=== PATIENT | male | born 1990 | race Caucasian/White ===

== ENCOUNTER 2021-02-22 15:01 | Emergency (ER) | payer OTHER ==
[2021-02-22 16:22] LABS: BASOPHILS % (AUTO) 0.5 %; EOSINOPHILS # (AUTO) 0.1 10^3/uL (0.0-0.7); EOSINOPHILS % (AUTO) 1.4 %; HCT - HEMATOCRIT 46.2 % (42.0-52.0); HGB - HEMOGLOBIN 15.4 g/dL (14.0-18.0); LYMPHOCYTES # (AUTO) 2.3 10^3/uL (1.5-3.5); LYMPHOCYTES % (AUTO) 29.1 %; MEAN CORPUSCULAR HEMOGLOBIN 28.8 pg (27.0-31.0); MEAN CORPUSCULAR HGB CONC 33.3 g/dL (32.0-36.0); MEAN CORPUSCULAR VOLUME 86.4 fL (80.0-94.0); MEAN PLATELET VOLUME 10.2 fL (7.4-11.4); MONOCYTES # (AUTO) 0.5 10^3/uL (0.0-1.0); MONOCYTES % (AUTO) 6.3 %; NEUTROPHILS # (AUTO) 4.9 10^3/uL (1.5-6.6); NEUTROPHILS % (AUTO) 62.4 %; PLT - PLATELET COUNT 248 10^3/uL (130-450); RED BLOOD COUNT 5.35 10^6/uL (4.70-6.10); RED CELL DISTRIBUTION WIDTH 13.2 % (12.0-15.0); WHITE BLOOD COUNT 7.9 x10^3/uL (4.8-10.8)
[2021-02-22 16:36] LABS: ALBUMIN 4.8 g/dL (3.2-5.5); ALBUMIN/GLOBULIN RATIO 1.5 (1.0-2.2); BILIRUBIN,TOTAL 0.5 mg/dL (0.2-1.0); CALCIUM 9.4 mg/dL (8.5-10.3); POTASSIUM 3.8 mmol/L (3.5-5.0); TOTAL PROTEIN 8.1 g/dL (6.7-8.2)
[2021-02-22 16:46] LABS: BILIRUBIN,URINE NEGATIVE (NEGATIVE); GLUCOSE, URINE (UA) NEGATIVE (NEGATIVE); KETONES,URINE (UA) NEGATIVE (NEGATIVE); LEUKOCYTE ESTERASE, URINE NEGATIVE (NEGATIVE); NITRITE,URINE NEGATIVE (NEGATIVE); OCCULT BLOOD,URINE NEGATIVE (NEGATIVE); PROTEIN,URINE NEGATIVE (NEGATIVE); UROBILINOGEN,URINE 0.2 (NORMAL) E.U./dL (NORMAL)
[2021-02-22 16:51] LABS: CLARITY,URINE CLEAR (CLEAR)
--- NOTE | 2021-02-22 20:23 | CT Report ---
PROCEDURE: Abdomen/Pelvis WO INDICATIONS: LLQ abd pain TECHNIQUE: Noncontrast 5 mm thick sections acquired from the diaphragms to the symphysis. 5 mm coronal and sagi ttal reformats were then performed. For radiation dose reduction, the following was used: automated exposure control, adjustment of mA and/or kV according to patient size. COMPARISON: None. FINDINGS: Image quality: Excellent. ABDOMEN: Lung bases: Lung bases are clear. Heart size is normal. Solid organs: Liver and spleen are normal in size. Gallbladder is within normal limits. Pancreas i s normal in contours. No adrenal nodules. Kidneys are normal in size, without hydronephrosis or nep hrolithiasis. Peritoneum and bowel: There is no evidence of bowel obstruction. No gastric or small bowel wall thick ening. There is focal area of mesenteric fat stranding anterior to distal descending colon and left l ower quadrant and very mild adjacent anterior wall thickening in the adjacent distal descending colon and proximal sigmoid colon most likely represent epiploic appendagitis. No other area of abnormal emery wel wall thickening. No abscess collection is seen. No free fluid of free air. Nodes and vessels: No retroperitoneal or mesenteric adenopathy by size criteria. Aorta and inferior vena cava are normal in caliber. Miscellaneous: No ventral hernias. PELVIS: Genitourinary: Bladder wall thickness is normal. Miscellaneous: No inguinal hernias or adenopathy. Bones: No suspicious bony lesions. No vertebral body compression fractures. IMPRESSION: 1. Focal area of mesenteric fat stranding along anterior aspect of distal descending colon most likel y represent epiglottic appendagitis. Mild anterior wall thickening in distal descending colon and pro ximal sigmoid colon likely represent reactive changes. No other area of abnormal bowel wall thickenin g. No bowel obstruction. No abscess collection. No free fluid or fluid. Reviewed by: Ulices Yang MD on 02/22/2021 8:22 PM PDT Approved by: Ulices Yang MD on 02/22/2021 8:22 PM PDT Station ID: [id number]
--- NOTE | 2021-02-22 20:37 | ED Physician Documentation ---
PD HPI ABD PAIN - Stated complaint Stated Complaint: LOWER LT ABD PX - Chief complaint Chief Complaint: Abd Pain - History obtained from History obtained from: Patient - History of Present Illness Timing - onset: Today Timing - duration: Days (1) Timing - details: Gradual onset Pain level max: 4 Pain level now: 2 Quality: Sharp, Pain Associated symptoms: Constipation. No: Fever, Nausea, Vomiting, Hematemesis, Melena, Hematochezia - Additional information Additional information: 30-year-old male with left lower quadrant abdominal pain since yesterday. Nothing seems to make it better or worse. He states sometimes it hurts more depressed. No diarrhea, but has had constipation. Described as a sharp pain. Nonradiating. No fevers, nausea, vomiting, blood in the stool. Has not had similar symptoms previously. Seen [facility] the [facility] and sent here for a CAT scan. Review of Systems Constitutional: denies: Fever, Chills GI: reports: Constipation. denies: Vomiting, Diarrhea : denies: Dysuria, Frequency, Hesitancy Skin: denies: Rash Musculoskeletal: denies: Neck pain, Back pain PD PAST MEDICAL HISTORY - Past Medical History Past Medical History: No - Past Surgical History Past Surgical History: No - Allergies Allergies/Adverse Reactions: Allergies Allergy/AdvReac Type Severity Reaction Status Date / Time No Known Drug Allergies Allergy Verified 02/22/21 15:11 - Social History Does the pt smoke?: No Smoking Status: Never smoker Does the pt drink ETOH?: No Does the pt have substance abuse?: No - Immunizations Immunizations are current?: No - POLST Patient has POLST: No PD ED PE NORMAL - Vitals Vital signs reviewed: Yes - General General: Alert and oriented X 3, No acute distress - HEENT HEENT: Moist mucous membranes - Neck Neck: Supple, no meningeal sign - Cardiac Cardiac: RRR - Respiratory Respiratory: No respiratory distress, Clear bilaterally - Abdomen Abdomen: Soft, Non distended, Other (Mild tenderness palpation left lower quadrant. No peritoneal signs.) - Derm Derm: Warm and dry - Neuro Neuro: Alert and oriented X 3 Results - Vitals Vitals: Oxygen O2 Source Room air - Labs Labs: Laboratory Tests 02/22/21 02/22/21 02/22/21 16:14 16:18 16:18 WBC 7.9 RBC 5.35 Hgb 15.4 Hct 46.2 MCV 86.4 MCH 28.8 MCHC 33.3 RDW 13.2 Plt Count 248 MPV 10.2 Neut # (Auto) 4.9 Lymph # (Auto) 2.3 Arthur # (Auto) 0.5 Eos # (Auto) 0.1 Baso # (Auto) 0.0 Absolute Nucleated RBC 0.00 Nucleated RBC % 0.0 Sodium 140 Potassium 3.8 Chloride 99 L Carbon Dioxide 31 Anion Gap 10.0 BUN 14 Creatinine 1.0 Estimated GFR (MDRD) 88 L Glucose 146 H Calcium 9.4 Total Bilirubin 0.5 AST 36 ALT 38 Alkaline Phosphatase 79 Total Protein 8.1 Albumin 4.8 Globulin 3.3 Albumin/Globulin Ratio 1.5 Lipase 36 Urine Color YELLOW Urine Clarity CLEAR Urine pH 7.0 Ur Specific [place] 1.020 Urine Protein NEGATIVE Urine Glucose (UA) NEGATIVE Urine Ketones NEGATIVE Urine Occult Blood NEGATIVE Urine Nitrite NEGATIVE Urine Bilirubin NEGATIVE Urine Urobilinogen 0.2 (NORMAL) Ur Leukocyte Esterase NEGATIVE Ur Microscopic Review NOT INDICATED Urine Culture Comments NOT INDICATED - Rads (name of study) CT abdomen pelvis Radiology: Final report received, EMP read contemporaneously, See rad report PD MEDICAL DECISION MAKING - ED course Complexity details: reviewed results, re-evaluated patient, considered differential, d/w patient ED course: CT consistent with epiploic appendagitis. Patient is otherwise well-appearing, nontoxic. Afebrile. No significant laboratory abnormalities. We will continue supportive care and have him follow-up with his doctor for further care. Patient counseled regarding signs and symptoms for which I believe and urgent re-evaluation would be necessary. Patient with good understanding of and agreement to plan and is comfortable going home at this time This document was made in part using voice recognition software. While efforts are made to proofread this document, sound alike and grammatical errors may occur. Departure - Departure Disposition: 01 Home, Self Care Clinical Impression: Epiploic appendagitis Condition: Good Instructions: ED Abdominal Pain Unkn Cause Follow-Up: DOUGLAS QUINTERO MD [Primary Care Provider] - As Needed Comments: Your CT scan tonight shows epiploic appendagitis. This is a self-limiting condition that usually resolves with in 1 to 2 weeks. You may utilize Motrin for pain. Return if you worsen. CT scan results: 1. Focal area of mesenteric fat stranding along anterior aspect of distal descending colon most likely represent epiglottic appendagitis. Mild anterior wall thickening in distal descending colon and proximal sigmoid colon likely represent reactive changes. No other area of abnormal bowel wall thickening. No bowel obstruction. No abscess collection. No free fluid or fluid. Discharge Date/Time: 02/22/21 20:55
[2021-02-22 20:59] VITALS: BP 128/87
== END 2021-02-22 20:55 | disposition home or self-care (01) ==
LOC: ED 15:01
DX: K63.89 Other specified diseases of intestine (principal)
CPT/HCPCS: 36415; 80053; 81001; 81003; 83690; 85025; 87086; 99282; 99284